=== PATIENT | female | born 1990 | race Caucasian/White ===

== ENCOUNTER 2021-11-06 18:54 | Observation (INO) | payer BC, OTHER ==
[~2021-11-06] VITALS: Ht 152.4 cm; Wt 82.7 kg
--- NOTE | 2021-11-06 19:01 | ED GI ---
General Stated Complaint: ABD PAIN; BLOODY STOOL History of Present Illness Date Seen by Provider: November 06, 2021 Time Seen by Provider: 19:01 Initial Comments 31-year-old female presents with abdominal pain. Patient reports that it started this morning around 11 or so. That it was behind her bellybutton and now is moved into her right lower quadrant. She reports that she has had a couple stool that have what appears to be some measure of blood in them. She is got some mild nausea no diarrhea. No fever no chills. She reports that even if she breathes the pain gets worse. Patient reports she has had her gallbladder out but still has her appendix. Allergies and Home Medications Allergies Coded Allergies: sulfamethoxazole (Verified Allergy, Unknown, 11/06/21) trimethoprim (Verified Allergy, Unknown, 11/06/21) Patient Home Medication List Home Medication List Reviewed: Yes Review of Systems Review of Systems Constitutional: No chills, No fever Respiratory: No Symptoms Reported Cardiovascular: No Symptoms Reported Gastrointestinal: Abdominal Pain; Denies Diarrhea; Nausea, Rectal Bleeding; Denies Vomiting Genitourinary: No Symptoms Reported Musculoskeletal: no symptoms reported Skin: no symptoms reported Psychiatric/Neurological: No Symptoms Reported Endocrine: No Symptoms Reported Physical Exam Vital Signs Vital Signs - First Documented 11/06/21 19:00 Temp 36.8 Pulse 97 Resp 16 B/P (MAP) 156/68 (97) Pulse Ox 97 O2 Delivery Room Air Capillary Refill : Height/Weight/BMI Height: '" Weight: lbs. oz. kg; BMI Method: General Appearance: WD/WN, no apparent distress Respiratory: lungs clear, normal breath sounds Cardiovascular: normal peripheral pulses, regular rate, rhythm Gastrointestinal: soft; No distended, No guarding, No rebound; tenderness (Periumbilical and right lower quadrant) Back: normal inspection Neurologic/Psychiatric: no motor/sensory deficits, alert, normal mood/affect, oriented x 3 Skin: normal color, warm/dry Progress/Results/Core Measures Results/Orders Lab Results Laboratory Tests Test 11/06/21 19:08 11/06/21 20:24 Range/Units White Blood Count 12.3 H 4.3-11.0 10^3/uL Red Blood Count 4.45 3.80-5.11 10^6/uL Hemoglobin 12.9 11.5-16.0 g/dL Hematocrit 39 35-52 % Mean Corpuscular Volume 88 80-99 fL Mean Corpuscular Hemoglobin 29 25-34 pg Mean Corpuscular Hemoglobin Concent 33 32-36 g/dL Red Cell Distribution Width 12.9 10.0-14.5 % Platelet Count 197 130-400 10^3/uL Mean Platelet Volume 10.3 9.0-12.2 fL Immature Granulocyte % (Auto) 0 % Neutrophils (%) (Auto) 83 H 42-75 % Lymphocytes (%) (Auto) 10 L 12-44 % Monocytes (%) (Auto) 6 0-12 % Eosinophils (%) (Auto) 0 0-10 % Basophils (%) (Auto) 0 0-10 % Neutrophils # (Auto) 10.2 H 1.8-7.8 10^3/uL Lymphocytes # (Auto) 1.3 1.0-4.0 10^3/uL Monocytes # (Auto) 0.7 0.0-1.0 10^3/uL Eosinophils # (Auto) 0.0 0.0-0.3 10^3/uL Basophils # (Auto) 0.0 0.0-0.1 10^3/uL Immature Granulocyte # (Auto) 0.0 0.0-0.1 10^3/uL Sodium Level 136 135-145 MMOL/L Potassium Level 3.7 3.6-5.0 MMOL/L Chloride Level 104 98-107 MMOL/L Carbon Dioxide Level 22 21-32 MMOL/L Anion Gap 10 5-14 MMOL/L Blood Urea Nitrogen 13 7-18 MG/DL Creatinine 0.79 0.60-1.30 MG/DL Estimat Glomerular Filtration Rate 102 BUN/Creatinine Ratio 16 Glucose Level 123 H 70-105 MG/DL Calcium Level 9.2 8.5-10.1 MG/DL Corrected Calcium 9.0 8.5-10.1 MG/DL Total Bilirubin 0.2 0.1-1.0 MG/DL Aspartate Amino Transf (AST/SGOT) 17 5-34 U/L Alanine Aminotransferase (ALT/SGPT) 16 0-55 U/L Alkaline Phosphatase 97 40-136 U/L C-Reactive Protein 1.63 H <0.50 MG/DL Total Protein 7.3 6.4-8.2 GM/DL Albumin 4.3 3.2-4.5 GM/DL Lipase 15 8-78 U/L Serum Test, Qualitative NEGATIVE NEGATIVE Urine Color YELLOW Urine Clarity CLEAR Urine pH 7.0 5-9 Urine Specific [place] <=1.005 1.016-1.022 Urine Protein NEGATIVE NEGATIVE Urine Glucose (UA) NEGATIVE NEGATIVE Urine Ketones NEGATIVE NEGATIVE Urine Nitrite NEGATIVE NEGATIVE Urine Bilirubin NEGATIVE NEGATIVE Urine Urobilinogen 0.2 < = 1.0 MG/DL Urine Leukocyte Esterase NEGATIVE NEGATIVE Urine RBC (Auto) NEGATIVE NEGATIVE Urine RBC NONE /HPF Urine WBC NONE /HPF Urine Squamous Epithelial Cells 2-5 /HPF Urine Crystals NONE /LPF Urine Bacteria NEGATIVE /HPF Urine Casts NONE /LPF Urine Mucus NEGATIVE /LPF Urine Culture Indicated NO My Orders Orders - THOMAS,XAVI L DO Cbc With Automated Diff (11/06/21 19:04) Comprehensive Metabolic Panel (11/06/21 19:04) Lipase (11/06/21 19:04) Ua Culture If Indicated (11/06/21 19:04) Crp Fs (11/06/21 19:04) Ondansetron Injection (Zofran Injectio (11/06/21 19:15) Lactated Ringers (Lr 1000 Ml Iv Solution (11/06/21 19:04) Ed Iv/Invasive Line Start (11/06/21 19:04) Fentanyl Inj (Sublimaze Injection) (11/06/21 19:04) Ct Abdomen/Pelvis W (11/06/21 19:27) Iohexol Injection (Omnipaque 350 Mg/Ml 1 (11/06/21 19:45) Received Contrast (Hold Metformin- Contr (11/06/21 19:45) Sodium Chloride Flush (Catheter Flush Sy (11/06/21 19:45) Ns (Ivpb) (Sodium Chloride 0.9% Ivpb Bag (11/06/21 19:45) Hcg,Qualitative Serum (11/06/21 19:59) Piperacillin Sodium/Tazobactam (Zosyn Vi (11/06/21 20:15) Ns Iv 1000 Ml (Sodium Chloride 0.9%) (11/06/21 20:16) Ed Admission (Communication) (11/06/21 20:17) Medications Given in ED Current Medications Medications Dose Ordered Sig/Ari Route Start Time Stop Time Status Last Admin Dose Admin Iohexol 100 ml ONCE ONCE IV 11/06/21 19:45 11/06/21 20:58 DC 11/06/21 19:54 100 ML Ondansetron HCl 4 mg ONCE ONCE IVP 11/06/21 19:15 11/06/21 19:16 DC 11/06/21 19:15 4 MG Piperacillin Sod/ Tazobactam Sod 4.5 gm/Sodium Chloride 100 ml @ 200 mls/hr ONCE ONCE IV 11/06/21 20:15 11/06/21 20:44 DC 11/06/21 20:30 200 MLS/HR Sodium Chloride 10 ml NEEDED PRN IV 11/06/21 19:45 11/06/21 19:54 10 ML Sodium Chloride 100 ml ONCE ONCE IV 11/06/21 19:45 11/06/21 20:58 DC 11/06/21 19:54 80 ML Vital Signs/I&O 11/06/21 11/06/21 19:00 20:44 Temp 36.8 Pulse 97 84 Resp 16 16 B/P (MAP) 156/68 (97) 112/71 Pulse Ox 97 98 O2 Delivery Room Air Room Air Progress Progress Note : Progress Note Patient with acute appendicitis on CT. Discussed with Dr. Bhardwaj. Patient to be transferred to [facility]. She will receive Zosyn every 6 hours. NPO. IV fluids. Patient to have surgery in the a.m. Diagnostic Imaging Diagonstic Imaging: CT Plain Films/CT/US/NM/MRI: abdomen Comments Date of Exam:11/06/21 CT ABDOMEN/PELVIS W CLINICAL INDICATION: Patient with abdominal pain, appendicitis. Patient states pain behind belly button x 9 hours. Patient has history of gallbladder removal. EXAM: Axial CT scan of the abdomen and pelvis performed with 100 mL of Omnipaque 350 IV contrast. Sagittal and coronal reformatted images were created. Auto Exposure Controls were utilized during the CT exam to meet ALARA standards for radiation dose reduction. COMPARISON: None. FINDINGS: Visualized lung bases are clear. Bones show no significant abnormality. The liver, spleen, pancreas and adrenal glands are unremarkable. Gallbladder is surgically absent. Both kidneys are unremarkable with no hydronephrosis, stone or mass. Bladder is fluid-filled and unremarkable. Bilateral ovarian cystic areas are noted. Right side measures roughly 3.5 cm. Uterus and adnexal structures are otherwise unremarkable. There is no intra-abdominal free air or free fluid. There is diffuse enlargement of the appendix with mild adjacent fat stranding. Appendix measures 8 mm in greatest width. This is consistent with acute appendicitis. Appendix is unruptured. There is no evidence of abscess. There is no intestinal obstruction. The extra-abdominal and extra-pelvic soft tissue structures are unremarkable. IMPRESSION: 1: Acute unruptured appendicitis. 2: There is a 3.5 cm right adnexal cyst. Reviewed: Reviewed by Me, Discussed w/Radiologist Departure Impression Primary Impression: Appendicitis Qualified Codes: K35.30 - Acute appendicitis with localized peritonitis, without perforation or gangrene Disposition: 30 STILL A PATIENT Condition: Stable Admissions Decision to Admit/Date: November 06, 2021 Time/Decision to Admit Time: 20:17 Departure-Patient Inst. Referrals: GRACE VIRGEN APRN (PCP) Primary Care Physician [facility]/K (Family) Primary Care Physician XAVI THOMAS DO November 06, 2021 19:01
[2021-11-06] MEDS ORDERED: LACTATED RINGERS 1,000 ML IV STA (19:04)
[2021-11-06] MEDS ORDERED: fentaNYL INJ 100 MCG/2 ML AMP IVP STA (19:04)
[2021-11-06 19:11] LABS: BASOPHILS % (AUTO) 0 % (0-10); EOSINOPHILS % (AUTO) 0 % (0-10); HEMATOCRIT 39 % (35-52); HEMOGLOBIN 12.9 g/dL (11.5-16.0); LYMPHOCYTES # (AUTO) 1.3 10^3/uL (1.0-4.0); LYMPHOCYTES % (AUTO) 10 % (12-44); MEAN CORPUSCULAR HEMOGLOBIN 29 pg (25-34); MEAN CORPUSCULAR HGB CONC 33 g/dL (32-36); MEAN CORPUSCULAR VOLUME 88 fL (80-99); MEAN PLATELET VOLUME 10.3 fL (9.0-12.2); MONOCYTES # (AUTO) 0.7 10^3/uL (0.0-1.0); MONOCYTES % (AUTO) 6 % (0-12); NEUTROPHILS # (AUTO) 10.2 10^3/uL (1.8-7.8); NEUTROPHILS % (AUTO) 83 % (42-75); PLATELET COUNT 197 10^3/uL (130-400); WHITE BLOOD COUNT 12.3 10^3/uL (4.3-11.0)
[2021-11-06] MEDS ORDERED: ONDANSETRON 4 MG/2 ML (SDV) Z0FRAN IVP ONE (19:15)
[2021-11-06 19:36] LABS: POTASSIUM 3.7 MMOL/L (3.6-5.0)
[2021-11-06 19:37] LABS: ALBUMIN 4.3 GM/DL (3.2-4.5); BILIRUBIN,TOTAL 0.2 MG/DL (0.1-1.0); CALCIUM 9.2 MG/DL (8.5-10.1); CREATININE SERUM 0.79 MG/DL (0.60-1.30); TOTAL PROTEIN 7.3 GM/DL (6.4-8.2)
[2021-11-06] MEDS ORDERED: NS 100 ML (IVPB) BAG IV ONE (19:45)
[2021-11-06] MEDS ORDERED: CATHETER FLUSH 10 ML SYR IV PRN (19:45)
[2021-11-06] MEDS ORDERED: IOHEXOL 350 MG/ML 100 ML (OMNIPAQUE 350) VIAL IV ONE (19:45)
[2021-11-06] MEDS ORDERED: HOLD METFORMIN - RECEIVED CONTRAST 20 ML VIAL IV SCH (19:45)
[2021-11-06] MEDS ORDERED: PIPERACILLIN SODIUM/TAZOBACTAM 4.5 GM in NS (IVPB) 100 ML IV ONE (20:15)
[2021-11-06] MEDS ORDERED: NS IV 1000 ML 1,000 ML IV STA (20:16)
[2021-11-06 20:31] LABS: BILIRUBIN,URINE NEGATIVE (NEGATIVE); CLARITY,URINE CLEAR; COLOR,URINE YELLOW; GLUCOSE, URINE (UA) NEGATIVE (NEGATIVE); KETONES,URINE NEGATIVE (NEGATIVE); LEUKOCYTE ESTERASE ,URINE NEGATIVE (NEGATIVE); NITRITE,URINE NEGATIVE (NEGATIVE); PROTEIN,URINE NEGATIVE (NEGATIVE)
[2021-11-06 20:32] LABS: BACTERIA,URINE NEGATIVE /HPF
--- NOTE | 2021-11-06 20:32 | Diagnostic Imaging Report ---
CLINICAL INDICATION: Patient with abdominal pain, appendicitis. Patient states pain behind belly button x 9 hours. Patient has history of gallbladder removal. EXAM: Axial CT scan of the abdomen and pelvis performed with 100 mL of Omnipaque 350 IV contrast. Sagittal and coronal reformatted images were created. Auto Exposure Controls were utilized during the CT exam to meet ALARA standards for radiation dose reduction. COMPARISON: None. FINDINGS: Visualized lung bases are clear. Bones show no significant abnormality. The liver, spleen, pancreas and adrenal glands are unremarkable. Gallbladder is surgically absent. Both kidneys are unremarkable with no hydronephrosis, stone or mass. Bladder is fluid-filled and unremarkable. Bilateral ovarian cystic areas are noted. Right side measures roughly 3.5 cm. Uterus and adnexal structures are otherwise unremarkable. There is no intra-abdominal free air or free fluid. There is diffuse enlargement of the appendix with mild adjacent fat stranding. Appendix measures 8 mm in greatest width. This is consistent with acute appendicitis. Appendix is unruptured. There is no evidence of abscess. There is no intestinal obstruction. The extra-abdominal and extra-pelvic soft tissue structures are unremarkable. IMPRESSION: 1: Acute unruptured appendicitis. 2: There is a 3.5 cm right adnexal cyst. Results of this report were discussed with Dr. Oscar Laureano via the telephone on 11/06/2021 at 2010 hours. Dictated by: Dictated on workstation # [id number]
[2021-11-06 22:06] VITALS: BP 121/69
[2021-11-06] MEDS ORDERED: ONDANSETRON 4 MG/2 ML (SDV) Z0FRAN IV PRN (22:30)
[2021-11-06] MEDS: NS IV 1000 ML 1,000 ML IV SCH (22:41)
[2021-11-07] VITALS (14 sets, daily range): BP systolic 86–119; BP diastolic 47–81
[2021-11-07] MEDS: PIPERACILLIN SODIUM/TAZOBACTAM 4.5 GM in NS (IVPB) 100 ML IV SCH ×2 (02:26→10:31)
[2021-11-07] MEDS: NS IV 1000 ML 1,000 ML IV SCH ×2 (06:10→14:30)
[2021-11-07] MEDS: fentaNYL INJ 100 MCG/2 ML AMP IV PRN (06:33)
[2021-11-07] MEDS ORDERED: LACTATED RINGERS 1,000 ML IV PRN (07:30)
--- NOTE | 2021-11-07 08:26 | Consultation - Surgery ---
History of Present Illness History of Present Illness Patient Consulted On(enrique/time) 11/07/21 08:17 Time Seen by Provider: 07:47 History of Present Illness Surgery asked to consult regarding acute appendicitis. HPI per ED: 31-year-old female presents with abdominal pain. Patient reports that it started this morning around 11 or so. That it was behind her bellybutton and now is moved into her right lower quadrant. She reports that she has had a couple stool that have what appears to be some measure of blood in them. She is got some mild nausea no diarrhea. No fever no chills. She reports that even if she breathes the pain gets worse. Patient reports she has had her gallbladder out but still has her appendix. When I spoke to pt this am she stated the pain was worse this morning compared to last night. She rated the pain as at least 6 out of 10. Pain is constant, sharp shooting pain that is worse with movement. Pain meds seem to help. Pt stated she had nausea and vomiting yesterday. Allergies and Home Medications Allergies Coded Allergies: sulfamethoxazole (Verified Allergy, Unknown, 11/06/21) trimethoprim (Verified Allergy, Unknown, 11/06/21) Patient Home Medication List Home Medication List Reviewed: Yes Past Wloiwsy-Frjdjf-Wfwhrm Hx Patient Social History Smoking Status: Never a Smoker Alcohol Use?: No Have you traveled recently?: No Surgeries History of Surgeries: Yes Surgeries: Gallbladder Respiratory History of Respiratory Disorde: No Cardiovascular History of Cardiac Disorders: No Neurological History of Neurological Disord: No Reproductive System : No Genitourinary History of Genitourinary Disor: No Gastrointestinal History of Gastrointestinal Di: No Musculoskeletal History of Musculoskeletal Dis: No Endocrine History of Endocrine Disorders: No HEENT History of HEENT Disorders: No Loss of Vision: Denies Hearing Impairment: Denies Cancer History of Cancer: No Psychosocial History of Psychiatric Problem: No Integumentary History of Skin or Integumenta: No Family Medical History Significant Family History: Hypertension (Mother) Review of Systems-General Constitutional: No diaphoresis; fever (thought she might have felt hot at home); No weakness EENTM: No blurred vision, No double vision, No mouth pain, No mouth swelling Respiratory: No cough, No dyspnea on exertion, No short of breath Cardiovascular: No palpitations Gastrointestinal: abdominal pain (RLQ); No jaundice; loss of appetite, nausea, vomiting Genitourinary: No dysuria, No frequency, No hematuria Musculoskeletal: No joint swelling, No muscle pain, No muscle stiffness Skin: No change in color, No change in hair/nails Psychiatric/Neurological: Denies Anxiety, Denies Depressed, Denies Seizure, Denies Tremors Physical Exam-General Problems Physical Exam Vital Signs Vital Signs - First Documented 11/06/21 19:00 Temp 36.8 Pulse 97 Resp 16 B/P (MAP) 156/68 (97) Pulse Ox 97 O2 Delivery Room Air Capillary Refill : Less Than 3 Seconds General Appearance: WD/WN, mild distress Eyes: Bilateral Eye PERRL, Bilateral Eye EOMI HEENT: PERRL/EOMI, pharynx normal Neck: non-tender, full range of motion, supple, normal inspection Respiratory: lungs clear, normal breath sounds, no respiratory distress, no accessory muscle use Cardiovascular: regular rate, rhythm, no murmur Gastrointestinal: soft, no organomegaly, tenderness (diffusely, but most), hernia (umbilical) Rectal: deferred Back: no CVA tenderness, no vertebral tenderness Extremities: non-tender, no pedal edema, no calf tenderness, normal capillary refill Neurologic/Psychiatric: steeping press tender II-XII nml as tested, no motor/sensory deficits, alert, normal mood/affect, oriented x 3 Skin: normal color, warm/dry Lymphatic: no adenopathy (neck, axilla or groin) Data Review Labs Laboratory Tests 11/06/21 19:08: White Blood Count 12.3H, Red Blood Count 4.45, Hemoglobin 12.9, Hematocrit 39, Mean Corpuscular Volume 88, Mean Corpuscular Hemoglobin 29, Mean Corpuscular Hemoglobin Concent 33, Red Cell Distribution Width 12.9, Platelet Count 197, Mean Platelet Volume 10.3, Immature Granulocyte % (Auto) 0, Neutrophils (%) (Auto) 83H, Lymphocytes (%) (Auto) 10L, Monocytes (%) (Auto) 6, Eosinophils (%) (Auto) 0, Basophils (%) (Auto) 0, Neutrophils # (Auto) 10.2H, Lymphocytes # (Auto) 1.3, Monocytes # (Auto) 0.7, Eosinophils # (Auto) 0.0, Basophils # (Auto) 0.0, Immature Granulocyte # (Auto) 0.0, Sodium Level 136, Potassium Level 3.7, Chloride Level 104, Carbon Dioxide Level 22, Anion Gap 10, Blood Urea Nitrogen 13, Creatinine 0.79, Estimat Glomerular Filtration Rate 102, BUN/Creatinine Ratio 16, Glucose Level 123H, Calcium Level 9.2, Corrected Calcium 9.0, Total Bilirubin 0.2, Aspartate Amino Transf (AST/SGOT) 17, Alanine Aminotransferase (ALT/SGPT) 16, Alkaline Phosphatase 97, C-Reactive Protein 1.63H, Total Protein 7.3, Albumin 4.3, Lipase 15, Serum Test, Qualitative NEGATIVE 11/06/21 20:24: Urine Color YELLOW, Urine Clarity CLEAR, Urine pH 7.0, Urine Specific [place] <=1.005, Urine Protein NEGATIVE, Urine Glucose (UA) NEGATIVE, Urine Ketones NEGATIVE, Urine Nitrite NEGATIVE, Urine Bilirubin NEGATIVE, Urine Urobilinogen 0.2, Urine Leukocyte Esterase NEGATIVE, Urine RBC (Auto) NEGATIVE, Urine RBC NONE, Urine WBC NONE, Urine Squamous Epithelial Cells 2-5, Urine Crystals NONE, Urine Bacteria NEGATIVE, Urine Casts NONE, Urine Mucus NEGATIVE, Urine Culture Indicated NO 11/07/21 02:10: Influenza Type A (RT-PCR) Not Detected, Influenza Type B (RT-PCR) Not Detected, SARS-CoV-2 RNA (RT-PCR) Not Detected Radiology Date of Exam:11/06/21 CT ABDOMEN/PELVIS W CLINICAL INDICATION: Patient with abdominal pain, appendicitis. Patient states pain behind belly button x 9 hours. Patient has history of gallbladder removal. EXAM: Axial CT scan of the abdomen and pelvis performed with 100 mL of Omnipaque 350 IV contrast. Sagittal and coronal reformatted images were created. Auto Exposure Controls were utilized during the CT exam to meet ALARA standards for radiation dose reduction. COMPARISON: None. FINDINGS: Visualized lung bases are clear. Bones show no significant abnormality. The liver, spleen, pancreas and adrenal glands are unremarkable. Gallbladder is surgically absent. Both kidneys are unremarkable with no hydronephrosis, stone or mass. Bladder is fluid-filled and unremarkable. Bilateral ovarian cystic areas are noted. Right side measures roughly 3.5 cm. Uterus and adnexal structures are otherwise unremarkable. There is no intra-abdominal free air or free fluid. There is diffuse enlargement of the appendix with mild adjacent fat stranding. Appendix measures 8 mm in greatest width. This is consistent with acute appendicitis. Appendix is unruptured. There is no evidence of abscess. There is no intestinal obstruction. The extra-abdominal and extra-pelvic soft tissue structures are unremarkable. IMPRESSION: 1: Acute unruptured appendicitis. 2: There is a 3.5 cm right adnexal cyst. Results of this report were discussed with Dr. Oscar Laureano via the telephone on 11/06/2021 at 2010 hours. Dictated by: Dictated on workstation # [id number] Dict: 11/06/212006 Trans: 11/06/212049 [id number] Interpreted by: LALITO PRINCE MD Electronically signed by: LALITO PRINCE MD 11/06/212049 Assessment/Plan Assessment/Plan Assessment/Plan Acute Appendicitis Pt was admitted from [facility] last night for IV ABX and some IV fluids. She was made NPO and given IV pain meds as needed. I reviewed the CT myself and agree the appendix is mildly inflamed. I discussed the surgery with pt; risks and complications not limited to pain, bleeding, infection, scar, damage to bowel and need for further procedure. All questions answered to her satisfaction. HERBERT AGUILAR DO November 07, 2021 08:26
[2021-11-07] MEDS ORDERED: ONDANSETRON 4 MG/2 ML (SDV) Z0FRAN ONE (09:28)
[2021-11-07] MEDS ORDERED: proPOfol 200 MG/20 ML (DIPRIVAN) VIAL IV ONE (09:28)
[2021-11-07] MEDS ORDERED: ROCURONIUM 50 MG/5 ML (ZEMURON) VIAL IV ONE (09:28)
[2021-11-07] MEDS ORDERED: SEVOFLURANE (ULTANE) 15 ML INHAL SOLN ONE (09:28)
[2021-11-07] MEDS ORDERED: fentaNYL INJ 100 MCG/2 ML AMP ONE (09:28)
[2021-11-07] MEDS ORDERED: LIDOCAINE PF 2% 5 ML (XYLOCAINE) VIAL ONE (09:28)
[2021-11-07] MEDS ORDERED: MIDAZOLAM 2 MG/2 ML (VERSED) VIAL ONE (09:29)
[2021-11-07] MEDS ORDERED: LIDOCAINE/EPI 1%-1:200,000 (XYLOCAINE) 30 ML VIAL ONE (10:39)
--- NOTE | 2021-11-07 12:12 | Progress Note-Post Operative ---
Post-Operative Progess Note Surgeon (s)/Supervisor Nurse (s) Surgeon HERBERT AGUILAR DO Supervisor Nurse: none Pre-Operative Diagnosis acute appendicitis Post-Operative Diagnosis same Procedure & Operative Findings Date of Procedure 11/07/21 Procedure Performed/Findings PROCEDURE: Laparoscopic appendectomy. COMPLICATIONS: None. INDICATIONS: The patient is a 31 year old female who has been having right lower quadrant abdominal pain. Patient's exam consistent with appendicitis. I discussed risk and benefits of laparoscopic appendectomy and all indicated procedures with the possibility being a normal appendix. The patient understands the risks and benefits and wishes to proceed. Consent was signed on the chart. DESCRIPTION OF PROCEDURE: The patient was taken to the operating suite, prepped and draped in a sterile fashion. Timeout was performed. Local anesthetic was infiltrated just above the umbilicus and 11-blade scalpel was used to make a skin incision. Cautery was used to dissect down to the fascia and scored. Kochers were used to grasp and elevate it and the abdomen was then entered. A 0 Vicryl was placed in a [id number] fashion for closure at the end of the case. The balloon trocar was inserted into the abdomen and pneumoperitoneum was achieved. Under direct visualization of the laparoscope, a 5 mm trocar was placed in the suprapubic region and a 5 mm trocar was placed in the left lower quadrant. Appendix was located and appeared mildly inflamed at least. The base of the appendix was dissected around. Once at the base an Endo-DENI 2.5 stapler was then fired across the base of the appendix. The mesoappendix was then divided. It was then placed in an Endobag and removed through the 12 mm trocar site. A picture was taken of the right ovarian cyst. The abdomen was then desufflated and the trocars were removed. The 0 Vicryl placed at the beginning of the case was then tied closing the 12 mm fascial defect. The skin was then closed using 4-0 Monocryl in a subcuticular fashion. The abdomen was then washed and dried and Skin Affix was placed over the incisions. The patient tolerated the procedure well without any complications and was taken to the recovery room in stable condition. Anesthesia Type GET Estimated Blood Loss Estimated blood loss (mL): scant Specimens/Packing Specimens Removed HERBERT Kee DO November 07, 2021 12:12
[2021-11-07] MEDS ORDERED: ACHD5005 PO (12:14)
--- NOTE | 2021-11-07 12:15 | Discharge Inst-Surgical ---
Discharge Inst-Surgical Depart Medication/Instructions New, Converted or Re-Newed RX: Transmitted to Pharmacy Patient Instructions Follow up Appt: Make appointment for 1 week. [phone] Instructions: No lifting greater than 20 pounds. No strenuous activity. May shower in 24 hours, no tub bath or soaking. Use incentive spirometer at home as directed. No Smoking Skin/Wound Care: May remove bandages in am. You need to leave the Dermabond on incision it will fall off on it's own. Symptoms to Report: Appetite Changes, Extremity Discoloration, Numbness/Tingling, Swelling Increased, Bleeding Excessive, Eyesight Changes, Pain Increased, Urine Color Change, Constipation(Persistent), Fever over 101 degree F, Pain/Pressure in chest, Urinating Difficulty, Cough Up/Vomit Blood, Heart Beat Irreg/Pounding, Pain/Pressure in jaw, Cramps in feet or legs, Lightheadedness, Pain/Pressure in shoulder, Diarrhea(Persistent), Memory Changes Suddenly, Questions/Concerns, Weight gain consecutive days, Dizziness/Fainting, Nausea/Vomiting, Shortness of Breath, Weight gain over 2 pounds If questions or concerns contact your physician Or seek help at emergency department. Activity Activity as Tolerated: Yes Activity Instructions: Avoid Stress to Incision Driving Instructions: No Driving/Refer to Dr. Vizcarra Discharge Diet: No Restrictions Diet After 24 Hours: Clear Liquid if Nauseous If Any Problems/Questions/Issu: Contact Your Physician, Go to Emergency Room Skin/Wound Care Infection Signs and Symptoms: Increased Redness, Foul Odor of Wound, Increased Drainage, Skin Itchy or Has a Rash, Increased Swelling, Temperature Above 101 F Wound Care Comment: heating pad to shoulder or neck tonight for pain Bathing Instructions: Shower Stitches/[place]/Dermabond Dis: [place] HERBERT AGUILAR DO November 07, 2021 12:15
--- NOTE | 2021-11-07 12:18 | Anesthesia-General Post-Op ---
General Patient Condition Mental Status/LOC: Same as Preop Cardiovascular: Satisfactory Nausea/Vomiting: Absent Respiratory: Satisfactory Pain: Controlled Complications: Absent Post Op Complications Complications None Follow Up Care/Instructions Patient Instructions None needed. Anesthesia/Patient Condition Patient Condition Patient is doing well, no complaints, stable vital signs, no apparent adverse anesthesia problems. No complications reported per nursing. LAWRENCE GUAMAN CRNA November 07, 2021 12:18
[2021-11-07] MEDS ORDERED: MEPERIDINE (DEMEROL) INJ 50 MG/ML IVP ONE (12:30)
[2021-11-07] MEDS ORDERED: morphine INJ 10 MG/ML 1ML (SYR OR VIAL) IVP ONE (12:30)
[2021-11-07] MEDS ORDERED: PROMETHAZINE INJ 25 MG/ML (PHENERGAN) AMP IVP ONE (12:30)
[2021-11-07] MEDS ORDERED: ONDANSETRON 4 MG/2 ML (SDV) Z0FRAN IVP PRN (12:30)
== END 2021-11-07 16:30 | disposition home or self-care (01) ==
LOC: ER FS 18:57 → 4TH 22:01
PROVIDERS: ADMIT Surgery; ATTEND Surgery
DX: K35.80 Unspecified acute appendicitis (principal); E66.9 Obesity, unspecified; Z68.35 Body mass index [BMI] 35.0-35.9, adult
CPT/HCPCS: 36415; 74177; 80053; 81000; 83690; 84703; 85025; 86141; 87081; 87636; 88304; 96374; 96375; 96376; Q9967